=== PATIENT | male | born 1990 | race Caucasian/White ===

== ENCOUNTER 2017-07-08 16:32 | Emergency (ER) | payer SELFPAY ==
[~2017-07-08] VITALS: Ht 172.7 cm; Wt 78.0 kg
[2017-07-08 16:32] VITALS: BP_SYST 119
[2017-07-08] MEDS ORDERED: NACL 0.9% 1,000 ML IV ONE (16:45)
[2017-07-08 16:49] LABS: BASOPHILS # (AUTO) 0.2 K/uL (0.0-0.2); BASOPHILS % (AUTO) 1.9 % (0.0-2.0); EOSINOPHILS % (AUTO) 0.5 % (0.0-4.0); LYMPHOCYTES # (AUTO) 2.1 K/uL (1.0-5.5); LYMPHOCYTES % (AUTO) 26.2 % (20.5-51.5); MEAN CORPUSCULAR HEMOGLOBIN 31 pg (27-31); MEAN CORPUSCULAR HGB CONC 33 % (32-36); MEAN CORPUSCULAR VOLUME 94 fL (79.0-98.0); MONOCYTES # (AUTO) 0.6 K/uL (0.0-1.0); MONOCYTES % (AUTO) 7.4 % (1.7-9.3); NEUTROPHILS # (AUTO) 5.3 K/uL (1.8-7.7); PLATELET COUNT (AUTO) 342 K/uL (130-430); RED CELL DISTRIBUTION WIDTH 13.9 % (9.0-15.0); WHITE BLOOD COUNT (AUTO) 8.2 K/uL (4.8-10.8)
[2017-07-08 17:05] LABS: ANION GAP 11 (5-15); CALCIUM 9.6 mg/dL (8.4-11.0); CHLORIDE 105 mmol/L (98-107); CREATININE 1.13 mg/dL (0.55-1.30); GLUCOSE 99 mg/dL (70-99); POTASSIUM 3.8 mmol/L (3.5-5.1); SODIUM SERUM 141 mmol/L (136-145); UREA NITROGEN, BLOOD 6 mg/dL (8-21)
[2017-07-08 17:07] LABS: GFR AFRICAN AMERICAN 99 mL/min (>90)
[2017-07-08 17:19] LABS: ACETAMINOPHEN < 1 ug/mL (1-30)
[2017-07-08 17:20] LABS: ALANINE AMINOTRANSFERASE 28 U/L (12-78); ASPARTATE AMINOTRANSFERASE 21 U/L (10-37)
[2017-07-08 17:21] LABS: ALBUMIN 4.1 g/dL (3.4-4.8)
[2017-07-08 17:24] LABS: BARBITURATE, URINE NEGATIVE (NEG <=200); BENZODIAZEPINE, URINE POSITIVE (NEG <=150); CANNABINOID, URINE POSITIVE (NEG <=50); COCAINE, URINE NEGATIVE (NEG <=150); METHAMPHETAMINES SCREEN,URINE NEGATIVE (NEG <=500); OPIATE, URINE NEGATIVE (NEG <=100); PHENCYCLIDINE SCREEN,URINE NEGATIVE (NEG <=25); UR TRICYCLIC ANTIDEPRESSANTS NEGATIVE (NEG <=300); URINE AMPHETAMINE NEGATIVE (NEG <=500); URINE METHADONE NEGATIVE (NEG <=200); URINE OXYCODONE SCREEN NEGATIVE (NEG <=100); URINE PROPOXYPHENE SCREEN NEGATIVE (NEG <=300)
[2017-07-08 17:36] LABS: ALCOHOL, BLOOD 85 mg/dL (<10)
== END 2017-07-08 17:19 | disposition left against medical advice (07) ==
LOC: SED 16:32
DX: F19.10 Other psychoactive substance abuse, uncomplicated (principal); Z53.20 Procedure and treatment not carried out because of patient's decision for unspecified reasons
CPT/HCPCS: 36415; 80053; 80307; 85025; 96360; 99284; G0480; G0481; G0482; J7030

== ENCOUNTER 2017-11-26 19:58 | Inpatient (IN) | payer SELFPAY ==
[~2017-11-26] VITALS: Ht 172.7 cm; Wt 79.8 kg
[2017-11-26 20:00] VITALS: BP_SYST 147
[2017-11-26] MEDS ORDERED: ONDANSETRON HCL 4 MG/2 ML VIAL IVP ONE (20:30)
[2017-11-26] MEDS ORDERED: NACL 0.9% 1,000 ML IV ONE ×2 (20:30→22:30)
[2017-11-26] MEDS ORDERED: NALOXONE HCL 2 MG/2 ML SYR IVP ONE ×2 (20:30→22:30)
[2017-11-26 21:02] LABS: BASOPHILS # (AUTO) 0.1 K/uL (0.0-0.2); EOSINOPHILS # (AUTO) 0.2 K/uL (0.0-0.4); EOSINOPHILS % (AUTO) 2.7 % (0.0-4.0); HEMATOCRIT 46.8 % (36-54); HEMOGLOBIN 15.5 g/dL (14.0-18.0); LYMPHOCYTES # (AUTO) 2.6 K/uL (1.0-5.5); LYMPHOCYTES % (AUTO) 31.1 % (20.5-51.5); MEAN CORPUSCULAR HEMOGLOBIN 31 pg (27-31); MEAN CORPUSCULAR HGB CONC 33 % (32-36); MEAN CORPUSCULAR VOLUME 93 fL (79.0-98.0); MONOCYTES # (AUTO) 0.9 K/uL (0.0-1.0); MONOCYTES % (AUTO) 10.3 % (1.7-9.3); NEUTROPHILS # (AUTO) 4.7 K/uL (1.8-7.7); NEUTROPHILS % (AUTO) 54.9 % (40.0-70.0); PLATELET COUNT (AUTO) 323 K/uL (130-430); RED BLOOD CELL COUNT(AUTO) 5.07 MIL/uL (4.2-6.2); RED CELL DISTRIBUTION WIDTH 12.5 % (9.0-15.0); WHITE BLOOD COUNT (AUTO) 8.5 K/uL (4.8-10.8)
[2017-11-26 21:05] LABS: CALCIUM 9.9 mg/dL (8.4-11.0); CREATININE 1.1 mg/dL (0.55-1.30); POTASSIUM 3.4 mmol/L (3.5-5.1)
[2017-11-26 21:10] LABS: ALBUMIN 4.4 g/dL (3.4-4.8); TOTAL BILIRUBIN 0.4 mg/dL (0.0-1.0)
[2017-11-26] MEDS ORDERED: PROCHLORPERAZINE EDISYLATE 10 MG/2 ML VIAL IVP ONE (21:15)
[2017-11-26] MEDS ORDERED: NALOXONE HCL 2 MG/2 ML SYR ONE (22:32)
[2017-11-27] MEDS ORDERED: FAMOTIDINE 20 MG TABLET PO PRN (00:30)
[2017-11-27 01:50] VITALS: BP_SYST 130
[2017-11-27] MEDS: NACL 0.9% 1,000 ML IV SCH ×3 (03:01→20:39)
[2017-11-27 07:40] LABS: BILIRUBIN,URINE NEGATIVE (NEGATIVE); BLOOD, URINE NEGATIVE (NEGATIVE); CLARITY/URINE CLEAR (CLEAR); COLOR,URINE YELLOW (YELLOW); GLUCOSE,URINE NEGATIVE (NEGATIVE); KETONES,URINE 1+ (NEGATIVE); LEUKOCYTE ESTERASE ,URINE NEGATIVE (NEGATIVE); NITRITE, URINE NEGATIVE (NEGATIVE); PROTEIN URINE NEGATIVE (NEGATIVE); UROBILINOGEN,URINE 0.2 (0.2-1.0)
[2017-11-27 07:59] LABS: BARBITURATE, URINE NEGATIVE (NEG <=200)
[2017-11-27 08:00] VITALS: BP_SYST 132
[2017-11-27 08:00] LABS: BENZODIAZEPINE, URINE POSITIVE (NEG <=150); CANNABINOID, URINE POSITIVE (NEG <=50); COCAINE, URINE NEGATIVE (NEG <=150); METHAMPHETAMINES SCREEN,URINE POSITIVE (NEG <=500); OPIATE, URINE POSITIVE (NEG <=100); PHENCYCLIDINE SCREEN,URINE NEGATIVE (NEG <=25); UR TRICYCLIC ANTIDEPRESSANTS NEGATIVE (NEG <=300); URINE AMPHETAMINE POSITIVE (NEG <=500); URINE METHADONE NEGATIVE (NEG <=200); URINE OXYCODONE SCREEN NEGATIVE (NEG <=100); URINE PROPOXYPHENE SCREEN NEGATIVE (NEG <=300)
[2017-11-27] MEDS ORDERED: POTASSIUM CHLORIDE 10 MEQ TAB.PRT.SR PO ONE ×2 (10:00→18:15)
[2017-11-27 11:33] VITALS: BP_SYST 126
[2017-11-27 15:45] VITALS: BP_SYST 131
[2017-11-27] MEDS: FAMOTIDINE 20 MG TABLET PO SCH (18:30)
[2017-11-27] MEDS ORDERED: ACETAMINOPHEN 325 MG TABLET PO PRN (18:30)
[2017-11-27 20:10] VITALS: BP_SYST 129
[2017-11-28 00:44] VITALS: BP_SYST 127
[2017-11-28] MEDS: NACL 0.9% 1,000 ML IV SCH (05:32)
[2017-11-28 07:12] LABS: CALCIUM 9.1 mg/dL (8.4-11.0); CREATININE 0.88 mg/dL (0.55-1.30)
[2017-11-28 08:39] VITALS: BP_SYST 140
[2017-11-28] MEDS ORDERED: NACL 0.9% 1,000 ML IV SCH (09:00)
[2017-11-28] MEDS ORDERED: FAMOTIDINE 20 MG TABLET PO ONE (09:00)
[2017-11-28] MEDS: FAMOTIDINE 20 MG TABLET PO SCH (10:13)
== END 2017-11-28 11:30 | disposition left against medical advice (07) | DRG 918 ==
LOC: SED 19:58 → STU 11-27 00:24
PROVIDERS: ADMIT Internal Medicine; ATTEND Internal Medicine
DX: T40.1X1A Poisoning by heroin, accidental (unintentional), initial encounter (principal); E87.6 Hypokalemia; F15.10 Other stimulant abuse, uncomplicated; Z60.2 Problems related to living alone; F32.9 Major depressive disorder, single episode, unspecified; Z53.21 Procedure and treatment not carried out due to patient leaving prior to being seen by health care provider; Y92.89 Other specified places as the place of occurrence of the external cause; Z87.891 Personal history of nicotine dependence
CPT/HCPCS: 36415; 80048; 80053; 80307; 81003; 83735-TC; 84439; 84443-TC; 85025; 96361; 96374; 96375; 96376; 99285; J0780; J2310; J2405; J7030

== ENCOUNTER 2019-08-31 17:17 | Emergency (ER) | payer MEDICAID ==
[~2019-08-31] VITALS: Ht 172.7 cm; Wt 79.4 kg
[2019-08-31 17:19] VITALS: BP_SYST 119
--- NOTE | 2019-08-31 17:23 | NUR ---
Patient to [facility] for evaluation. Side rails up. Report given to LC Manley
--- NOTE | 2019-08-31 17:23 | NUR ---
Patient brought in by [facility]'s department [place] for medical clearance prior to booking. Patient voiced no complaints. Reports having history of gastritis and heroine usage. Patient reports last usage was this morning. Denies any nausea, vomiting or diarrhea. Denies any pain . No other complaints/ injuries per patient or as noted. Will continue to monitor
--- NOTE | 2019-08-31 17:40 | NUR ---
ER Dr. Islas at bedside examining patient.
--- NOTE | 2019-08-31 18:11 | NUR ---
Patient given written and verbal discharge instructions and verbalizes understanding. ER MD Islas discussed with patient the results and treatment provided. Patient in stable condition. ID arm band removed. No Rx given. Patient educated on pain management and to follow up with PMD. Pain Scale 0. Opportunity for questions provided and answered. Medication side effect fact sheet provided.
[2019-08-31 18:12] VITALS: BP_SYST 119
== END 2019-08-31 18:11 ==
LOC: SED 17:17
DX: Z02.89 Encounter for other administrative examinations (principal); F11.10 Opioid abuse, uncomplicated; F15.10 Other stimulant abuse, uncomplicated
CPT/HCPCS: 99283

== ENCOUNTER 2020-12-08 21:23 | Emergency (ER) | payer OTHER, MEDICAID ==
[~2020-12-08] VITALS: Ht 172.7 cm; Wt 73.5 kg
[2020-12-08 21:26] VITALS: BP_SYST 153
--- NOTE | 2020-12-08 21:29 | NUR ---
Patient to ER bed 04 to gown for evaluation. Side rails up.
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
--- NOTE | 2020-12-08 21:40 | NUR ---
Seen and examined by Dr. Arce, ER Attending
--- NOTE | 2020-12-08 22:01 | NUR ---
# 18 gauge angiocath placed to left AC. Use of asceptic technique. Opsite placed over site. Blood return noted. Blood for lab drawn from site. Flushed with 10 cc of normal saline. No evidence of infiltration noted. Patient tolerated well.
--- NOTE | 2020-12-08 22:05 | NUR ---
Patient transported to radiology via GURNEY, accompanied by SCOURER AND EMT TECH.
--- NOTE | 2020-12-08 22:27 | NUR ---
Bactk to room from CT Scan department, kept comfortable
[2020-12-08 22:38] LABS: BASOPHILS % (AUTO) 0.6 % (0.0-2.0); EOSINOPHILS % (AUTO) 0.6 % (0.0-4.0); HEMOGLOBIN 14.8 g/dL (14.0-18.0); LYMPHOCYTES # (AUTO) 2.5 K/uL (1.0-5.5); LYMPHOCYTES % (AUTO) 30.4 % (20.5-51.5); MEAN CORPUSCULAR HEMOGLOBIN 32 pg (27-31); MEAN CORPUSCULAR HGB CONC 34 % (32-36); MEAN CORPUSCULAR VOLUME 94 fL (79.0-98.0); MONOCYTES # (AUTO) 0.6 K/uL (0.0-1.0); MONOCYTES % (AUTO) 7.6 % (1.7-9.3); NEUTROPHILS % (AUTO) 60.8 % (40.0-70.0); PLATELET COUNT (AUTO) 255 K/uL (130-430); RED BLOOD CELL COUNT(AUTO) 4.59 MIL/uL (4.2-6.2); RED CELL DISTRIBUTION WIDTH 13.3 % (9.0-15.0); WHITE BLOOD COUNT (AUTO) 8.2 K/uL (4.8-10.8)
[2020-12-08 23:14] LABS: ANION GAP 7 (5-15); CALCIUM 8.6 mg/dL (8.4-11.0); CHLORIDE 106 mmol/L (98-107); CREATININE 1.23 mg/dL (0.55-1.30); GFR AFRICAN AMERICAN 88 mL/min (>90); GLUCOSE 89 mg/dL (70-99); POTASSIUM 3.7 mmol/L (3.5-5.1); SODIUM SERUM 142 mmol/L (136-145); UREA NITROGEN, BLOOD 15 mg/dL (8-21)
--- NOTE | 2020-12-08 23:18 | NUR ---
Voided freely in urinal, clear urine 200ml urine noted, sample sent to lab
[2020-12-08 23:25] LABS: ALANINE AMINOTRANSFERASE 27 U/L (12-78); ALBUMIN 4.1 g/dL (3.4-4.8); ASPARTATE AMINOTRANSFERASE 18 U/L (10-37); LIPASE 57 U/L (73-393); TOTAL BILIRUBIN 0.4 mg/dL (0.0-1.0)
[2020-12-08 23:30] LABS: ALCOHOL, BLOOD < 3 mg/dL (<10)
--- NOTE | 2020-12-08 23:38 | NUR ---
Re-assesed by Dr. Arce, Cervical Spine Ct scan is negative, cervical collar removed. Abrasions at right elbow and right wrist cleanse with normal saline and povidone iodine, non adhesive dressing applied, no active bleeding noted.
[2020-12-08 23:39] LABS: BARBITURATE, URINE POSITIVE (NEG <=200); BENZODIAZEPINE, URINE POSITIVE (NEG <=150); CANNABINOID, URINE POSITIVE (NEG <=50); COCAINE, URINE NEGATIVE (NEG <=150); METHAMPHETAMINES SCREEN,URINE POSITIVE (NEG <=500); OPIATE, URINE POSITIVE (NEG <=100); PHENCYCLIDINE SCREEN,URINE NEGATIVE (NEG <=25); UR TRICYCLIC ANTIDEPRESSANTS NEGATIVE (NEG <=300); URINE AMPHETAMINE NEGATIVE (NEG <=500); URINE METHADONE NEGATIVE (NEG <=200); URINE OXYCODONE SCREEN NEGATIVE (NEG <=100); URINE PROPOXYPHENE SCREEN NEGATIVE (NEG <=300)
[2020-12-09 00:13] VITALS: BP_SYST 143
== END 2020-12-09 00:13 | disposition home or self-care (01) ==
LOC: SED 21:23
DX: R41.82 Altered mental status, unspecified (principal); R51.9 Headache, unspecified; F13.10 Sedative, hypnotic or anxiolytic abuse, uncomplicated; F15.10 Other stimulant abuse, uncomplicated; V43.92XA Unspecified car occupant injured in collision with other type car in traffic accident, initial encounter; Y93.89 Activity, other specified; Y92.413 State road as the place of occurrence of the external cause; Y99.8 Other external cause status
CPT/HCPCS: 36415; 70450; 72125; 76376; 80053; 80307; 83690; 85025; 99285; G0482